=== PATIENT | female | born 1955 | race Caucasian/White ===

== ENCOUNTER 2016-06-10 06:19 | Inpatient (IN) | payer BC ==
[2016-06-09 13:26] VITALS: BMI 29.0
[2016-06-10] MEDS ORDERED: TRANEXAMIC ACID 1000 MG/10 ML VIAL IVPUSH ONE (06:36)
[2016-06-10] MEDS ORDERED: ROPIVICAINE 0.2%/MORPH PF/KETOROLAC - 51ML DISP.SYRINGE IA ONE (06:36)
[2016-06-10] MEDS ORDERED: CEFAZOLIN 2 GM in DEXTROSE 5%-WATER - 50 ML IVPB ONE (06:36)
[2016-06-10] MEDS ORDERED: CELECOXIB 200 MG CAPSULE PO ONE (06:36)
[2016-06-10] MEDS ORDERED: GABAPENTIN 300 MG CAPSULE (FP) PO ONE (06:36)
[2016-06-10] MEDS ORDERED: oxyCODONE HCL 10 MG SUSTAINED ACTING TABLET PO ONE (06:36)
[2016-06-10] MEDS ORDERED: MIDAZOLAM HCL 2 MG/2 ML SINGLE DOSE VIAL ONE (06:46)
[2016-06-10] MEDS ORDERED: DEXAMETHASONE SOD PHOSPHATE/PF 10 MG/ML SDV ONE (06:46)
[2016-06-10] MEDS ORDERED: ROPIVACAINE HCL 0.5% 30ML VIAL ONE (06:47)
[2016-06-10] MEDS ORDERED: SODIUM CHLORIDE 0.9% P/F 10 ML VIAL IJ ONE (06:47)
[2016-06-10] MEDS ORDERED: VANCOMYCIN 1,000 MG VIAL (RESTRICTED TO ID ONLY) ONE (07:23)
[2016-06-10] MEDS ORDERED: ceFAZolin SODIUM 1 GM VIAL ONE ×2 (07:23→08:54)
[2016-06-10] MEDS ORDERED: PROPOFOL 20 ML ONE ×3 (07:37)
[2016-06-10] MEDS ORDERED: BUPIVACAINE HCL/PF 0.5% (5MG/ML) 10 ML VIAL ONE (07:42)
--- NOTE | 2016-06-10 07:50 | HP ---
Admitting History and Physical - Admission Chief Complaint: Left knee OA x years History of Present Illness: 60 year old female presents in regard to her left knee. Longstanding history of left knee osteoarthritis. Patient complains of pain, limited ROM and difficulty ambulating. Patient has failed conservative treatment including PO medication, activity modification and injections. At this point patient would like to proceed with a left total knee arthroplasty. History Source: Patient - Past Medical History Cardiovascular: Yes: HTN Gastrointestinal: Yes: GERD ...: No Psych: Yes: Anxiety, Depression Additional Past Medical History: See written H&P in chart - Smoking History Smoking history: Current every day smoker Have you smoked in the past 12 months: Yes Aproximately how many cigarettes per day: 10 - Alcohol/Substance Use Hx Alcohol Use: No Home Medications - Allergies Allergies/Adverse Reactions: Allergies Allergy/AdvReac Type Severity Reaction Status Date / Time venom-honey bee Allergy Severe SWELLING/ITCHING/RESPIRATORY Verified 06/10/16 06 :45 [bee venom (honey bee)] DISTRESS adhesive tape Allergy Intermediate BLISTERS Verified 06/10/16 06:45 morphine Allergy Intermediate "VOMITTING" Verified 06/10/16 06:45 - Home Medications Home Medications: Ambulatory Orders Paroxetine HCl [Paxil -] 50 mg PO DAILY 11/03/11 Quinapril HCl [Accupril -] 40 mg PO HS 11/03/11 Alprazolam [Xanax] 1 mg PO TID 06/04/15 Amitriptyline HCl [Elavil -] 50 mg PO HS 06/05/15 Omeprazole [Prilosec] 40 mg PO DAILY 06/08/15 Cholecalciferol (Vitamin D3) [Vitamin D3] 2,000 iu PO DAILY 05/13/16 Oxycodone HCl 20 mg PO QID PRN 05/13/16 Review of Systems - Review of Systems Musculoskeletal: reports: Crepitus (Left knee), Decreased ROM, Joint Pain, Joint Swelling Physical Examination Vital Signs: Vital Signs Temperature 97.6 F 06/10/16 06:40 Pulse Rate 689 H 06/10/16 06:40 Respiratory Rate 16 06/10/16 06:40 Blood Pressure 95/69 06/10/16 06:40 O2 Sat by Pulse Oximetry (%) 98 06/10/16 07:02 Constitutional: Yes: Well Nourished, No Distress Eyes: Yes: Conjunctiva Clear HENT: Yes: Atraumatic, Normocephalic Cardiovascular: Yes: Regular Rate and Rhythm Respiratory: Yes: Regular Gastrointestinal: Yes: Soft ...Rectal Exam: Yes: Deferred Musculoskeletal: Yes: Joint Stiffness (Left knee), Joint Swelling Assessment/Plan 60 year old female presents in regard to her left knee. Longstanding history of left knee osteoarthritis. Patient has failed all conservative treatment. Proceed with a left total knee arthroplasty.
[2016-06-10] MEDS ORDERED: TRANEXAMIC ACID 1000 MG/10 ML VIAL ONE ×2 (08:54)
[2016-06-10] MEDS ORDERED: DEXAMETHASONE SOD PHOSPHATE 4 MG/1 ML VIAL ONE (11:01)
[2016-06-10] MEDS ORDERED: ONDANSETRON 4 MG/2 ML VIAL ONE (11:01)
[2016-06-10] MEDS ORDERED: ONDANSETRON 4 MG/2 ML VIAL IVPB PRN (12:00)
[2016-06-10] MEDS ORDERED: MAGNESIUM HYDROX 2400MG/30ML ORAL SUSPENSION 30 ML CUP PO PRN (12:00)
[2016-06-10] MEDS ORDERED: LACTATED RINGERS SOLUTION 1,000 ML IV SCH (12:00)
[2016-06-10] MEDS ORDERED: MAG HYDROX/AL HYDROX/SIMETH 30 ML UNIT-DOSE CUP PO PRN (12:00)
--- NOTE | 2016-06-10 12:00 | OP ---
Operative Note - Note: Operative Date: 06/10/16 Pre-Operative Diagnosis: Left knee OA Operation: left TKA Post-Operative Diagnosis: Same as Pre-op Surgeon: Arnie Alcala Rehabilitation Teacher: Evelia Rick Anesthesia: Spinal Estimated Blood Loss (mls): 100
[2016-06-10] MEDS ORDERED: PANTOPRAZOLE 40 MG TABLET (FP) PO ONE (12:03)
[2016-06-10] MEDS ORDERED: ACETAMINOPHEN 325 MG TABLET (FP) ONE (12:21)
[2016-06-10] MEDS: KETOROLAC TROMETHAMINE 30 MG/1 ML VIAL IVPUSH SCH ×2 (12:40→17:58)
[2016-06-10] MEDS: traMADol HCL 50 MG TABLET PO SCH ×2 (12:40→17:59)
[2016-06-10] MEDS ORDERED: ROPIVACAINE 0.2% 400ML 400 ML ML NR ONE (14:00)
[2016-06-10] MEDS ORDERED: oxyCODONE HCL 5 MG TABLET PO PRN (14:00)
[2016-06-10] MEDS: ACETAMINOPHEN 325 MG TABLET (FP) PO SCH ×2 (15:54→18:05)
[2016-06-10] MEDS: CEFAZOLIN 2 GM/D5W 50 ML IVPB SCH (17:57)
[2016-06-10] MEDS: oxyCODONE HCL 5 MG TABLET PO PRN ×2 (18:04→21:39)
[2016-06-10] MEDS: oxyCODONE HCL 10 MG SUSTAINED ACTING TABLET PO SCH (21:39)
[2016-06-10] MEDS: ASCORBIC ACID 500 MG TABLET (FP) PO SCH (21:40)
[2016-06-10] MEDS: CELECOXIB 200 MG CAPSULE PO SCH (21:40)
[2016-06-10] MEDS: GABAPENTIN 300 MG CAPSULE (FP) PO SCH (21:40)
[2016-06-10] MEDS: SENNOSIDES/DOCUSATE COMBO (SENNA PLUS) TABLET (UD) PO SCH (21:40)
[2016-06-10] MEDS ORDERED: GABAPENTIN 300 MG CAPSULE (FP) PO SCH (22:00)
[2016-06-11] MEDS: ACETAMINOPHEN 325 MG TABLET (FP) PO SCH ×5 (00:24→19:56)
[2016-06-11] MEDS: KETOROLAC TROMETHAMINE 30 MG/1 ML VIAL IVPUSH SCH ×2 (00:24→06:08)
[2016-06-11] MEDS: traMADol HCL 50 MG TABLET PO SCH ×4 (00:24→18:52)
[2016-06-11] MEDS: CEFAZOLIN 2 GM/D5W 50 ML IVPB SCH (01:25)
[2016-06-11] MEDS: oxyCODONE HCL 5 MG TABLET PO PRN ×4 (06:09→21:08)
[2016-06-11] MEDS: ASPIRIN 325 MG TABLET PO SCH (08:06)
[2016-06-11 08:44] LABS: MCH 30.5 pg (25.7-33.7); MCHC 33.3 g/dl (32.0-36.0); MEAN CELL VOLUME 91.5 fl (80-96); MEAN PLT VOLUME 8.2 fl (7.5-11.1); PLATELET COUNT 208 K/MM3 (134-434); RDW 13.6 % (11.6-15.6); WHITE BLOOD COUNT 7.4 K/mm3 (4.0-10.8)
[2016-06-11 08:47] LABS: ANION GAP 9 (8-16); CALCIUM 8.9 mg/dl (8.4-10.2); CO2 27 mmol/L (22-28); CREATININE 0.8 mg/dl (0.6-1.3); GLUCOSE,RANDOM 101 mg/dl (74-106)
[2016-06-11] MEDS: GABAPENTIN 300 MG CAPSULE (FP) PO SCH ×2 (09:21→21:11)
[2016-06-11] MEDS: ASCORBIC ACID 500 MG TABLET (FP) PO SCH ×2 (09:21→21:09)
[2016-06-11] MEDS: SENNOSIDES/DOCUSATE COMBO (SENNA PLUS) TABLET (UD) PO SCH ×2 (09:21→21:11)
[2016-06-11] MEDS: MULTIVITAMINS (DAILY MVI) TABLET (FP) PO SCH (09:21)
[2016-06-11] MEDS: PANTOPRAZOLE 40 MG TABLET (FP) PO SCH (09:21)
[2016-06-11] MEDS: oxyCODONE HCL 10 MG SUSTAINED ACTING TABLET PO SCH ×2 (09:21→21:10)
[2016-06-11] MEDS: CELECOXIB 200 MG CAPSULE PO SCH ×2 (09:21→21:11)
--- NOTE | 2016-06-11 14:56 | PN ---
Progress Note (short form) - Note Progress Note: Patient doing well. POD#1 s/p L total knee replacements. Adductor canal catheter removed after 20 mL bolus of 0.5% bupivicaine administered. Catheter tip intact. Patient able to participate in physical therapy. Continue current care.
[2016-06-11] MEDS ORDERED: KETOROLAC TROMETHAMINE 30 MG/1 ML VIAL IM STA (19:47)
--- NOTE | 2016-06-11 22:16 | PN ---
Progress Note (short form) - Note Progress Note: Pt seen and examined. Comfortable now. No current complaints. AVSS Selected Entries 06/11/16 06/11/16 13:58 20:13 Temperature 98.7 F Pulse Rate 72 Respiratory 18 Rate Blood Pressure 114/63 O2 Sat by Pulse 96 Oximetry (%) Laboratory Tests 06/11/16 06/11/16 08:00 08:00 WBC 7.4 Hgb 10.6 L Hct 32.0 L Plt Count 208 Sodium 141 Potassium 4.4 Chloride 105 Carbon Dioxide 27 Anion Gap 9 BUN 19 H Creatinine 0.8 Random Glucose 101 Calcium 8.9 Gen: NAD LLE: c/d/i, NVID A/P 60yo female POD#1 s/p L TKA 1. PT/OOB - WBAT LLE 2. D/C home tomorrow afternoon
[2016-06-11] MEDS ORDERED: oxyCODONE HCL 5 MG TABLET PO PRN (22:20)
[2016-06-12] MEDS: traMADol HCL 50 MG TABLET PO SCH ×2 (00:45→05:50)
[2016-06-12] MEDS: oxyCODONE HCL 5 MG TABLET PO PRN ×3 (00:45→07:23)
[2016-06-12] MEDS: ACETAMINOPHEN 325 MG TABLET (FP) PO SCH ×2 (05:18→07:04)
[2016-06-12 05:49] VITALS: BP 111/56; PULSE 82; TEMP 98
[2016-06-12 07:47] LABS: MCH 29.9 pg (25.7-33.7); MEAN CELL VOLUME 90.6 fl (80-96); MEAN PLT VOLUME 7.9 fl (7.5-11.1); PLATELET COUNT 206 K/MM3 (134-434); RDW 13.7 % (11.6-15.6); WHITE BLOOD COUNT 5.4 K/mm3 (4.0-10.8)
[2016-06-12] MEDS: ASPIRIN 325 MG TABLET PO SCH (08:00)
[2016-06-12] MEDS: GABAPENTIN 300 MG CAPSULE (FP) PO SCH (09:11)
[2016-06-12] MEDS: SENNOSIDES/DOCUSATE COMBO (SENNA PLUS) TABLET (UD) PO SCH (09:11)
[2016-06-12] MEDS: CELECOXIB 200 MG CAPSULE PO SCH (09:11)
[2016-06-12] MEDS: ASCORBIC ACID 500 MG TABLET (FP) PO SCH (09:12)
[2016-06-12] MEDS: MULTIVITAMINS (DAILY MVI) TABLET (FP) PO SCH (09:12)
[2016-06-12] MEDS: PANTOPRAZOLE 40 MG TABLET (FP) PO SCH (09:12)
--- NOTE | 2016-06-15 16:17 | PATH ---
Surgical Pathology Report Patient Name: DAVINA MCKEON Med. Rec. #: [id number] /Age/Gender: 1955 (Age: 60) / F Account: [id number] Location: [facility] MED-[facility] Taken: 06/10/2016 Received: 06/10/2016 Reported: 06/15/2016 Physicians: Arnie Alcala M.D. Specimen(s) Received BONE LEFT KNEE Clinical History Osteoarthritis left knee Final Diagnosis BONE, LEFT KNEE, TOTAL KNEE REPLACEMENT: DEGENERATIVE JOINT DISEASE. Electronically Signed Alicia Soto M.D. Gross Description Received in formalin labeled "bone left knee," is a 14.0 x 9.5 x 2.0 cm aggregate of multiple irregular portions of bone and soft tissue. The tibial plateau measures 7.5 x 5.4 x 1.8 cm. There are multiple areas of eburnation present, measuring up to 1.4 cm in greatest dimension. The remaining articular surfaces are arevalo-yellow and focally granular. The underlying trabecular bone is yellow and hard. Upper Cutter Out sections are submitted in one cassette, following decalcification. 06/11/201606/11/2016
--- NOTE | 2016-07-08 17:22 | SPEC ---
DATE OF OPERATION: 06/10/2016 PREOPERATIVE DIAGNOSIS: Left knee osteoarthritis. POSTOPERATIVE DIAGNOSIS: Left knee osteoarthritis. PROCEDURE: Left total knee replacement. ATTENDING: Maryann Pierson MD HOSPITAL CLEANING SPECIALIST: JESSICA Pike ANESTHESIA: Spinal plus sedation. ESTIMATED BLOOD LOSS: 100 mL. COMPLICATIONS: None. SPECIMENS: Resected bone was sent for pathology analysis. DISPOSITION: The patient was transferred to the PACU in stable condition. IMPLANTS USED: Yoan Triathlon size 4 femoral component, Triathlon size 4 tibial component, 29-mm patellar component, 13-mm posterior stabilized polyethylene component. INDICATIONS: This is a 60-year-old female who is a long-time patient of mine who presented to the office complaining of severe left knee pain. X-rays and physical examination revealed severe left knee osteoarthritis. She was initially treated nonoperatively with injections, medications, and physical therapy but continued to have severe pain and ambulatory dysfunction. She was subsequently indicated for a left total knee replacement. The risks, benefits and alternatives to the procedure were explained to the patient in great detail and she elected to proceed with the surgery. On the day of surgery, the patient was taken to the operating room and placed on the OR table. Spinal anesthesia was administered by the anesthesiologist. The patient was then positioned supine on the table and all bony prominences were padded. A nonsterile tourniquet was placed on the proximal thigh. The knee was then prepped and draped in the usual sterile fashion and intravenous antibiotics were given for infection prophylaxis. A surgical time-out was then performed with the team, and the patients identity, procedure, side, availability of implants, and the administration of antibiotics was confirmed. The leg was then elevated and exsanguinated, and the tourniquet was inflated. With the knee flexed, a midline incision was made and carried down through the subcutaneous fat to the underlying retinaculum. A medial parapatellar arthrotomy was performed. This was followed by a subperiosteal dissection of the tissue off the proximal, medial tibia. A portion of fat pad was removed from under the patellar tendon, and a small portion of fat was excised off the distal supracondylar femur. The knee was then flexed further and the anterior horn of the lateral meniscus was released from the midline. Next, the anterior and posterior cruciate ligaments were transected. Osteophytes were removed from both the femur and tibia. Grade 4 changes were noted diffusely throughout the knee. Hohmann retractors were then placed around the distal femur. The starting drill was used to enter the intramedullary canal. The starting point had been chosen by checking the radiographs and anatomy. Proper alignment and intramedullary placement was then confirmed by placing the long narrow kirstie into the femur. Next, the distal femoral cutting guide was adjusted to 6 degrees of valgus and pinned to the femur. The bone resection was assessed using an martine-wing. An approximately 10mm distal cut was made and the cut pieces measured. Once this was complete, the sizing guide was used to determine which size femoral component should be used. Next, the appropriately sized 4-in-1 cutting block was then placed at the correct amount of external rotation and the martine wing was used to assure that there would be no notching of the anterior cortex of the femur. Once this was done, Hohmann retractors were used to protect the medial and lateral collateral ligaments, and all appropriate bone cuts were made. Attention was then turned to the tibia. Hohmann retractors were used to translate the tibia anteriorly and protect the collateral ligaments. The medial and lateral menisci were removed. The extramedullary tibial alignment guide was then placed and adjusted for rotation, varus/valgus, and slope. The height of the cutting block was adjusted to the level of the desired bone resection and then pinned in place. The proximal tibia was then cut with a saw and the bone was removed and measured. Once this was completed, trial components were placed and the knee was taken through a full range of motion. Soft tissue balance was assessed in both flexion and extension and found to be appropriate. The knee was stable throughout the full range of motion. The knee was then put into extension and the patella everted. The synovium around the patella was circumscribed with electrocautery. A caliper was used to measure the patellar thickness and a saw was then used to resect the patella at the chondro-osseous junction. The cut surface was then sized and drilled for the appropriate patellar button, with care taken to medialize it. A trial patella was then placed and the knee was again taken through a full range of motion. The knee was found to have both good balance and good patellar tracking. All of the components were removed except the tibial base plate. The appropriate instrumentation was used to drill and punch the proximal tibia for the keel of the final component. All bony surfaces were then cleaned with pulsatile lavage and dried. Bone cement was then prepared on the back table, and final components were cemented in place in the usual fashion. Extruded cement was removed. The polyethylene trial was placed, the knee was put into extension, and axial pressure was applied for compression while the cement hardened. The patellar button was similarly cemented into place. Once the cement had hardened, the knee was taken through a full range of motion to assess stability, balance, and patellar tracking. This was found to be optimal and the trial polyethylene was exchanged for the appropriately sized real implant. The wound was then thoroughly irrigated with normal saline. No. 1 Polysorb and 0 VLoc 180 barbed sutures were used to close the arthrotomy. No. 1 Polysorb and 2-0 Polysorb sutures were used in the subcutaneous tissues. The skin was closed using both 3-0 VLoc 90 suture in a running subcuticular fashion and SwiftSet skin adhesive. Once this was completed a sterile Aquacel dressing and compressive Milton-wrap was applied. The tourniquet was then deflated and the patient was awakened and taken to the PACU in stable condition. MARYANN PIERSON M.D. [id number]
== END 2016-06-12 12:45 | disposition home health service (06) | DRG 470 ==
LOC: FM/S 06:19
PROVIDERS: ADMIT Student in an Organized Health Care Education/Training Program; ATTEND Student in an Organized Health Care Education/Training Program
PROC: 0SRD0JZ Replacement of Left Knee Joint with Synthetic Substitute, Open Approach (ICD-10-PCS; principal; 2016-06-10 09:18)
DX: M17.12 Unilateral primary osteoarthritis, left knee (principal); F17.210 Nicotine dependence, cigarettes, uncomplicated; I10 Essential (primary) hypertension; K21.9 Gastro-esophageal reflux disease without esophagitis
CPT/HCPCS: 36415; 73560-TC-LT; 80048; 85027; 88304-TC; 88311-TC; 94010; 94760; 97116-GP; 97162-PG

== ENCOUNTER 2017-01-28 12:08 | Emergency (ER) | payer BC, MEDICARE, OTHER ==
[2017-01-28 12:17] VITALS: BP 112/86; PULSE 82; TEMP 97.9; BMI 29.8
[2017-01-28] MEDS ORDERED: KETOROLAC TROMETHAMINE 60 MG/2 ML VIAL IM ONE (13:29)
[2017-01-28] MEDS ORDERED: KETOROLAC TROMETHAMINE 60 MG/2 ML VIAL ONE (13:32)
--- NOTE | 2017-01-28 13:34 | PDOC ---
History of Present Illness - General Chief Complaint: Chronic pain Stated Complaint: BACK INJURY Time Seen by Provider: 01/28/17 12:46 History Source: Patient Exam Limitations: No Limitations - History of Present Illness Initial Comments: 01/28/17 19:19 Chief complaint: Worsening lower back pain mostly left-sided down left leg History of present illness: Patient is a 61-year-old female with a history of depression, GERD, hypertension, left knee replacement and right shoulder total replacement here today complaining of worsening lower back pain on left side radiating down her left leg. Patient reports that she noticed a deformity of her left lower medial sacral area today that she did not notice yesterday with worsening left-sided lower back pain radiating down her leg. Patient denies any saddle anesthesia or any incontinency or any weakness or numbness of her legs. Patient is on pain management takes Percocet as needed for pain. Patient reports that she is extremely worried about feeling an indurated area to the left sacral area this morning and is worried that her anxiety will get worse thinking about what is the cause of this. 01/28/17 19:25 Timing/Duration: getting worse Severity: severe (lower back pain with radiation down left leg ) Associated Symptoms: reports: other (lower back pain with radiation down left leg) Past History - Past Medical History Allergies/Adverse Reactions: Allergies Allergy/AdvReac Type Severity Reaction Status Date / Time venom-honey bee Allergy Severe SWELLING/ITCHING/RESPIRATORY Verified 01/28/17 12 :17 [bee venom (honey bee)] DISTRESS adhesive tape Allergy Intermediate BLISTERS Verified 01/28/17 12:17 morphine Allergy Intermediate "VOMITTING" Verified 01/28/17 12:17 Home Medications: Ambulatory Orders Paroxetine HCl [Paxil -] 50 mg PO DAILY 11/03/11 Quinapril HCl [Accupril -] 40 mg PO HS 11/03/11 Alprazolam [Xanax] 1 mg PO TID 06/04/15 Amitriptyline HCl [Elavil -] 50 mg PO HS 06/05/15 Cholecalciferol (Vitamin D3) [Vitamin D3] 2,000 iu PO DAILY 05/13/16 Oxycodone HCl 20 mg PO QID PRN 05/13/16 Ascorbic Acid [Vitamin C -] 500 mg PO BID tablet 06/12/16 Multivitamins [Multivit ([facility] Formulary)] 1 tab PO DAILY tab 06/12/16 Anemia: No Asthma: No Cancer: No Cardiac Disorders: No CVA: No COPD: No CHF: No DVT: No Dementia: No Diabetes: No GI Disorders: Yes (GERD) Disorders: No HTN: Yes Hypercholesterolemia: No Liver Disease: No Psychiatric Problems: Yes (DEPRESSION) Seizures: No Thyroid Disease: No - Surgical History Abdominal Surgery: Yes (UMBILICAL HERNIA REPAIR 2012,3 HERNIA REPAIRS) Appendectomy: No Cardiac Surgery: No Cholecystectomy: No Gastric Stapling: Yes (BYPASS,REVISION) Lung Surgery: No Neurologic Surgery: No Orthopedic Surgery: Yes (RIGHT SHOULDER ARTHROSCOPY/LEFT ULNAR REPAIR) - Suicide/Smoking/Psychosocial Hx Smoking Status: Yes Smoking History: Current every day smoker Years of Tobacco Use: 40 Have you smoked in the past 12 months: Yes Number of Cigarettes Smoked Daily: 20 Information on smoking cessation initiated: No 'Breaking Loose' booklet given: 06/05/15 Hx Alcohol Use: No Drug/Substance Use Hx: No Substance Use Type: None Hx Substance Use Treatment: No Review of Systems - Review of Systems Able to Perform ROS?: Yes Constitutional: No: Symptoms Reported HEENTM: No: Symptoms Reported Respiratory: No: Symptoms reported Cardiac (ROS): No: Symptoms Reported ABD/GI: No: Symptoms Reported : No: Symptoms Reported Musculoskeletal: Yes: Back Pain (left sided lower back pain with radiation down left leg,), Other (indurated area left medial sacrum) Integumentary: No: Symptoms Reported Neurological: No: Symptoms reported *Physical Exam - Vital Signs Last Vital Signs Temp Pulse Resp BP Pulse Ox 97.9 F 82 18 112/86 100 01/28/17 12:14 01/28/17 12:14 01/28/17 12:14 01/28/17 12:14 01/28/17 12:14 - Physical Exam General Appearance: Yes: Appropriately Dressed Respiratory/Chest: positive: Lungs Clear, Normal Breath Sounds. negative: Chest Tender, Respiratory Distress Cardiovascular: positive: Regular Rhythm, Regular Rate, S1, S2 Musculoskeletal: positive: Normal Inspection, Decreased Range of Motion (at waist with anterior flexion ), Other (induration left medial sacrum pea size ). negative: CVA Tenderness, CVA Tenderness (R), CVA Tenderness (L), Vertebral Tenderness Extremity: positive: Normal Capillary Refill, Normal Inspection, Normal Range of Motion Integumentary: positive: Normal Color Neurologic: positive: Alert, Normal Response, Motor Strength 5/5 (4/4 legs ), Respond to painful stimul, Responsive, Other (negative SLR b/l ). negative: Numbness, Sensory Deficit (legs ) Medical Decision Making - Medical Decision Making 01/28/17 19:21 Patient is a 61-year-old female with a history of depression, hypertension, left knee replacement and right shoulder total replacement here today complaining of worsening lower back pain on left side radiating down her left leg. Patient reports that she noticed a deformity of her left lower medial sacral area today that she did not notice yesterday with worsening left-sided lower back pain radiating down her leg. Patient denies any saddle anesthesia or any incontinency or any weakness or numbness of her legs. Patient is on pain management takes Percocet as needed for pain. Patient reports that she is extremely worried about feeling an indurated area to the left sacral area this morning and is worried that her anxiety will get worse thinking about what is the cause of this. Left sided lower back pain with radiculopathy down left leg worse since this morning with deformity of area felt by patient will rule out bony abnormality Plan: Toradol [address] of pelvis degenerative changes especially at L4-L5,L5-S1 Will Have patient follow up with her orthopedist as soon as possible for further evaluation 01/28/17 19:24 *DC/Admit/Observation/Transfer Diagnosis at time of Disposition: Lumbar back pain with radiculopathy affecting left lower extremity - Discharge Dispostion Disposition: HOME Condition at time of disposition: Stable - Referrals Referrals: Silviano Thompson [Primary Care Provider] - - Patient Instructions Additional Instructions: Follow-up with your orthopedist for further evaluation Take pain medications as previously ordered Avoid any strenuous activities or exercise Return to emergency room if any numbness of legs or private area or any loss of control of bladder or bowel movement or any extreme weakness of legs Patient voiced understanding of discharge instructions and all questions were answered Thank you for choosing [facility] emergency room premedical needs to today - Post Discharge Activity
== END 2017-01-28 15:18 | disposition home or self-care (01) ==
LOC: JERFT 12:08
PROC: 3E0233Z Introduction of Anti-inflammatory into Muscle, Percutaneous Approach (ICD-10-PCS; principal; 2017-01-28)
DX: M54.16 Radiculopathy, lumbar region (principal); I10 Essential (primary) hypertension; F32.9 Major depressive disorder, single episode, unspecified
CPT/HCPCS: 72192-TC; 96372; 99281-25

== ENCOUNTER 2019-01-22 07:06 | Day surgery (SDC) | payer OTHER ==
[2019-01-16 11:33] VITALS: BMI 35.5
[2019-01-22] MEDS ORDERED: BUPIVACAINE HCL/PF 0.25% (2.5MG/ML) 10 ML VIAL ONE (07:19)
[2019-01-22] MEDS ORDERED: BETAMET ACET/BETAMET NA PH 30 MG/5 ML VIAL ONE (07:19)
[2019-01-22] MEDS ORDERED: LIDOCAINE HCL 1%, 10 MG/ML (20ML VIAL) ONE (07:19)
[2019-01-22] MEDS ORDERED: BUPIVACAINE HCL/PF 0.5% (5 MG/ML) 30 ML VIAL IJ ONE ×2 (07:19→12:15)
[2019-01-22] MEDS ORDERED: PROPOFOL 20 ML ONE (09:05)
[2019-01-22] MEDS ORDERED: MIDAZOLAM HCL 2 MG/2 ML SINGLE DOSE VIAL ONE ×3 (12:06→12:26)
[2019-01-22] MEDS ORDERED: LIDOCAINE HCL 1%, 10 MG/ML (20ML VIAL) NR ONE (12:14)
[2019-01-22] MEDS ORDERED: IOHEXOL 180 MG/1 ML ML IJ ONE (12:15)
[2019-01-22] MEDS ORDERED: BETAMET ACET/BETAMET NA PH 30 MG/5 ML VIAL IM ONE (12:16)
[2019-01-22 14:21] VITALS: TEMP 97.8
[2019-01-22 14:27] VITALS: PULSE 98
[2019-01-22 17:42] VITALS: BP 125/80
--- NOTE | 2019-02-06 23:19 | PROC ---
Procedure Note Procedure: Date of service: 01/22/2019 Preoperative Diagnosis: Low back pain and lumbar Facet Arthropathy on right / Left Postoperative Diagnosis: Same Procedure Performed: Lumbar Facet diagnostic blocks on Right / Left L3-4/ L4-5 / L5-S1 with dye under Fluoroscopy Anesthesia: Local / MAC Anesthesiologist: Procedure: I discussed with the patient in detail about the risks, benefits and alternatives to treatment not only limited to infection, headache, numbness, weakness and injury to nerves, spinal cord, blood vessels and muscles. The patient understood, agreed and signed the written consent. The patient was placed in the prone position with the head, abdomen and legs supported with the pillows. The patients lower back was prepped and draped in a sterile fashion. Under C-arm and Scottie dog view eye was identified the L2-3, L3-4 and L4-5 levels on Left/Right side. At the level of L3-4 (L3) on Rigth , 2 ml of 1% Lidocaine was infiltrated into the skin and subcutaneous tissue. A 5 inch #22 guage spinal needle was used to approach the eye of the Scottie dog in the oblique view until the tip of the needle contacted the bone with the use of intermittent fluoroscopy. Needle placement was confirmed both in the AP and oblique view. Aspiration was done which was negative for blood. 0.20 ml of dye omnipaque was injected to see the spread of the dye. A solution of O.5% marciane 5 ml mixed with one ml of Celestone was prepared. A solution of 1 ml of this solution was injected at this level. Whilethe needle was withdrawn 1 ml of 1% Lidocaine was infiltrated. A similar procedure was repeated at left/ Right L4-5 (L4) and L5-S1 (L5) and left L3-4 level. The patient tolerated the procedure well. Bleeding was checked. There were no immediate complications. The patient was observed and asked about pain level. The patient mentioned that there was improvement was more than 90%. The patient was told to apply ice at the injection sites. If there is any problem, call my office or report to the ER . The patient was discharged as per [facility] criteria. Elijah Fonseca M.D.
== END 2019-01-22 13:50 | disposition home or self-care (01) ==
LOC: JASU-SURG 07:06
PROVIDERS: ATTEND Physical Medicine & Rehabilitation
PROC: 3E0T3BZ Introduction of Anesthetic Agent into Peripheral Nerves and Plexi, Percutaneous Approach (ICD-10-PCS; 2019-01-22)
PROC: BR16YZZ Fluoroscopy of Lumbar Facet Joint(s) using Other Contrast (ICD-10-PCS; 2019-01-22)
PROC: 3E0T33Z Introduction of Anti-inflammatory into Peripheral Nerves and Plexi, Percutaneous Approach (ICD-10-PCS; principal; 2019-01-22 09:30)
DX: M46.96 Unspecified inflammatory spondylopathy, lumbar region (principal); M54.5 Low back pain
CPT/HCPCS: 76000-TC-FY

== ENCOUNTER 2019-02-23 07:18 | Day surgery (SDC) | payer OTHER ==
[2019-02-22 09:07] VITALS: BMI 35.5
[2019-02-23] MEDS ORDERED: PROPOFOL 20 ML ONE ×2 (08:34→10:13)
[2019-02-23] MEDS ORDERED: MIDAZOLAM HCL 2 MG/2 ML SINGLE DOSE VIAL ONE (09:01)
[2019-02-23] MEDS ORDERED: IOHEXOL 180 MG/1 ML ML IJ ONE ×2 (10:25)
[2019-02-23] MEDS ORDERED: LIDOCAINE HCL 1%, 10 MG/ML (20ML VIAL) NR ONE (10:25)
[2019-02-23] MEDS ORDERED: BUPIVACAINE HCL/PF 0.5% (5MG/ML) 10 ML VIAL IJ ONE (10:25)
[2019-02-23 12:57] VITALS: PULSE 68; TEMP 97.8
[2019-02-23 13:13] VITALS: BP 140/70
--- NOTE | 2019-02-26 23:48 | PROC ---
Procedure Note Procedure: Date of service: 02/23/2019 Preoperative Diagnosis: Low back pain and lumbar Facet arthropathy on right / Left Postoperative Diagnosis: Same Procedure Performed: Lumbar Epidural Steroid Injection (LESI) on Right / Left L3 -4 /L4-5/ L5-S1 with dye under Fluoroscopy Anesthesia: Local / MAC Anesthesiologist: Dr. Bhandari Procedure: I discussed with the patient in detail about the risks, benefits and alternatives to treatment not only limited to infection, headache, numbness, weakness and injury to nerves, spinal cord, blood vessels and muscles. The patient understood, agreed and signed the written consent. The patient was placed in the prone position with the head, abdomen and legs supported with the pillows. The patients lower back was prepped and draped in a sterile fashion. Under C-arm and Scottie dog view eye was identified the L2-3, L3-4 and L4-5 levels on Left/ Right side. At the level of L3-4 (L3),on left 2 ml of 1% Lidocaine was infiltrated into the skin and subcutaneous tissue. A 5 inch #22 guage spinal needle was used to approach the eye of the Scottie dog in the oblique view until the tip of the needle contacted the bone with the use of intermittent fluoroscopy. Needle placement was confirmed both in the AP and oblique view. Aspiration was done which was negative for blood. 0.20 ml of dye omnipaque was injected to see the spread of the dye. A solution of 0.5 ml of preservative free 0.5% Marcaine was injected at this level. While the needle was withdrawn 1 ml of 1% Lidocaine was infiltrated.Similar procedure was repeated at left/ Right L4-5 (L4) and L5-S1 (L5) and Rt L3-4 level. The patient tolerated the procedure well. Bleeding was checked. There were no immediate complications. The patient was observed and asked about pain level. The patient mentioned that there was improvement was more than 90%. The patient was told to apply ice at the injection sites. The patient was discharged as per [facility] criteia. If there is any problem, call my office or report to the ER Elijah Fonseca M.D.
== END 2019-02-23 12:15 | disposition home or self-care (01) ==
LOC: JASU-SURG 07:18
PROVIDERS: ATTEND Physical Medicine & Rehabilitation
PROC: 3E0T33Z Introduction of Anti-inflammatory into Peripheral Nerves and Plexi, Percutaneous Approach (ICD-10-PCS; 2019-02-23)
PROC: 3E0T3BZ Introduction of Anesthetic Agent into Peripheral Nerves and Plexi, Percutaneous Approach (ICD-10-PCS; principal; 2019-02-23 09:00)
DX: M46.97 Unspecified inflammatory spondylopathy, lumbosacral region (principal); M54.5 Low back pain
CPT/HCPCS: 76000-TC-FY

== ENCOUNTER 2020-06-03 07:21 | Inpatient (IN) | payer OTHER ==
[2020-06-03] MEDS ORDERED: ceFAZolin SODIUM 1 GM VIAL ONE ×2 (07:25→10:16)
[2020-06-03] MEDS ORDERED: VANCOMYCIN 1,000 MG VIAL (RESTRICTED TO ID ONLY) ONE (07:25)
[2020-06-03] MEDS ORDERED: CELECOXIB 200 MG CAPSULE PO ONE (08:06)
[2020-06-03] MEDS ORDERED: TRANEXAMIC ACID 1000 MG/10 ML VIAL IVPUSH ONE (08:06)
[2020-06-03] MEDS ORDERED: CEFAZOLIN 2 GM in DEXTROSE 5%-WATER - 50 ML IVPB ONE (08:06)
[2020-06-03 08:29] VITALS: BMI 32.5
[2020-06-03] MEDS ORDERED: SODIUM CHLORIDE 0.9% P/F 10 ML VIAL IJ ONE (08:33)
[2020-06-03] MEDS ORDERED: BUPIVACAINE LIPOSOME/PF (EXPAREL) 266 MG/20 ML VIAL ONE (08:33)
[2020-06-03] MEDS ORDERED: MIDAZOLAM HCL 2 MG/2 ML SINGLE DOSE VIAL ONE (08:33)
[2020-06-03] MEDS ORDERED: SUCCINYLCHOLINE CHLORIDE 200 MG/10 ML SYRINGE ONE (10:16)
[2020-06-03] MEDS ORDERED: ONDANSETRON 4 MG/2 ML VIAL ONE ×2 (10:16→11:41)
[2020-06-03] MEDS ORDERED: DEXAMETHASONE SOD PHOSPHATE 4 MG/1 ML VIAL ONE ×2 (10:16→11:41)
[2020-06-03] MEDS ORDERED: TRANEXAMIC ACID 1000 MG/10 ML VIAL ONE ×2 (10:16→11:41)
[2020-06-03] MEDS ORDERED: PROPOFOL 20 ML ONE (10:16)
[2020-06-03] MEDS ORDERED: SEVOFLURANE 250 ML BTL ONE (11:28)
[2020-06-03] MEDS ORDERED: NITROGLYCERIN SUBLINGUAL 1/150 0.4 MG TAB SL PRN (12:17)
[2020-06-03] MEDS ORDERED: ONDANSETRON 4 MG/2 ML VIAL IVPUSH PRN (12:20)
[2020-06-03] MEDS ORDERED: MAG HYDROX/AL HYDROX/SIMETH 30 ML UNIT-DOSE CUP PO PRN (12:20)
[2020-06-03] MEDS ORDERED: MAGNESIUM HYDROX 2400MG/30ML ORAL SUSPENSION 30 ML CUP PO PRN (12:20)
[2020-06-03] MEDS ORDERED: LACTATED RINGERS SOLUTION 1,000 ML IV SCH (12:30)
[2020-06-03] MEDS ORDERED: oxyCODONE HCL 5 MG TABLET PO PRN (13:00)
[2020-06-03] MEDS ORDERED: ALPRAZolam 1 MG TABLET PO PRN (14:00)
[2020-06-03] MEDS: oxyCODONE HCL 5 MG TABLET PO PRN ×2 (16:13→20:07)
[2020-06-03] MEDS: CEFAZOLIN 2 GM/D5W 2 GM/50 ML ML IVPB SCH (18:06)
[2020-06-03] MEDS: AMITRIPTYLINE HCL 25 MG TABLET PO SCH (22:03)
[2020-06-03] MEDS: SENNOSIDES/DOCUSATE COMBO (SENNA PLUS) TABLET (UD) PO SCH (22:03)
[2020-06-03] MEDS: GABAPENTIN 400 MG CAPSULE PO SCH (22:03)
[2020-06-03] MEDS: CARVEDILOL 6.25 MG TABLET (FP) PO SCH (22:03)
[2020-06-03] MEDS: RANOLAZINE E.R. 500 MG TABLET (FP) PO SCH (22:04)
[2020-06-04] MEDS: CEFAZOLIN 2 GM/D5W 2 GM/50 ML ML IVPB SCH (01:43)
[2020-06-04] MEDS: oxyCODONE HCL 5 MG TABLET PO PRN ×3 (01:43→09:28)
[2020-06-04] MEDS: GABAPENTIN 400 MG CAPSULE PO SCH (06:30)
[2020-06-04] MEDS ORDERED: ASPIRIN 325 MG TABLET PO SCH (08:00)
[2020-06-04 08:07] LABS: HEMOGLOBIN 9.8 GM/dl (10.7-15.3); MCH 27.2 pg (25.7-33.7); MCHC 32.5 g/dl (32.0-36.0); MEAN CELL VOLUME 83.6 fl (80-96); MEAN PLT VOLUME 8.6 fl (7.5-11.1); PLATELET COUNT 224 K/MM3 (134-434); RBC 3.59 M/mm3 (3.60-5.2); RDW 17.1 % (11.6-15.6); WHITE BLOOD COUNT 9.2 K/mm3 (4.0-10.8)
[2020-06-04] MEDS: RANOLAZINE E.R. 500 MG TABLET (FP) PO SCH (09:23)
[2020-06-04] MEDS: SENNOSIDES/DOCUSATE COMBO (SENNA PLUS) TABLET (UD) PO SCH (09:24)
[2020-06-04] MEDS: AMITRIPTYLINE HCL 25 MG TABLET PO SCH (09:24)
[2020-06-04] MEDS: CARVEDILOL 6.25 MG TABLET (FP) PO SCH (09:25)
[2020-06-04] MEDS ORDERED: PARoxetine HCL 20 MG TABLET PO SCH (10:00)
[2020-06-04] MEDS ORDERED: FUROSEMIDE 20 MG TABLET (FP) PO SCH (10:00)
[2020-06-04] MEDS ORDERED: PANTOPRAZOLE 40 MG TABLET PO SCH (10:00)
[2020-06-04] MEDS ORDERED: QUINAPRIL HCL 20 MG TABLET PO SCH (10:00)
[2020-06-04] MEDS ORDERED: PATIENT'S OWN MEDICATION (NON-FORMULARY) (Omeprazole [Omeprazole] 20 MG Tablet.Dr) PO SCH (10:00)
[2020-06-04] MEDS ORDERED: ROSUVASTATIN CA 10 MG TABLET (FP) PO SCH (10:00)
[2020-06-04] MEDS ORDERED: MULTIVITAMINS (DAILY MVI) TABLET (FP) PO SCH (10:00)
[2020-06-04 10:39] VITALS: BP 120/72; PULSE 82; TEMP 98.2
== END 2020-06-04 14:56 | disposition home health service (06) | DRG 470 ==
LOC: FM/S 07:21
PROVIDERS: ADMIT Orthopaedic Surgery; ATTEND Orthopaedic Surgery
PROC: 8E0Y0CZ Robotic Assisted Procedure of Lower Extremity, Open Approach (ICD-10-PCS; 2020-06-03)
PROC: 0SRC0J9 Replacement of Right Knee Joint with Synthetic Substitute, Cemented, Open Approach (ICD-10-PCS; principal; 2020-06-03 10:47)
DX: M17.11 Unilateral primary osteoarthritis, right knee (principal); I10 Essential (primary) hypertension; K21.9 Gastro-esophageal reflux disease without esophagitis
CPT/HCPCS: 36415; 73560-TC-RT-FY; 85027; 94760; 97010-GP; 97116-GP; 97162-GP

== ENCOUNTER 2020-06-24 17:42 | Emergency (ER) | payer OTHER ==
[2020-06-24 17:55] VITALS: BMI 32.3
[2020-06-24] MEDS ORDERED: KETOROLAC TROMETHAMINE 15 MG/ML VIAL IVPUSH ONE (18:52)
[2020-06-24] MEDS ORDERED: KETOROLAC TROMETHAMINE 15 MG/ML VIAL ONE (19:28)
[2020-06-24 19:36] LABS: BASO % 0.4 % (0-2.0); EOS % 5.8 % (0-4.5); HEMATOCRIT 31.3 % (32.4-45.2); HEMOGLOBIN 10.1 GM/dL (10.7-15.3); LYMPH % 32.1 % (8-40); MCHC 32.2 g/dl (32.0-36.0); MEAN CELL VOLUME 83.7 fl (80-96); MEAN PLT VOLUME 8.1 fl (7.5-11.1); MONO % 7.5 % (3.8-10.2); NEUT % 54.2 % (42.8-82.8); PLATELET COUNT 361 K/MM3 (134-434); RBC 3.74 M/mm3 (3.60-5.2); RDW 18.8 % (11.6-15.6); WHITE BLOOD COUNT 4.6 K/mm3 (4.0-10.0)
[2020-06-24 19:53] LABS: ALBUMIN 3.4 g/dl (3.4-5.0)
[2020-06-24 19:54] LABS: BLOOD UREA NITROGEN 15.2 mg/dL (7-18)
[2020-06-24 19:57] LABS: CREATININE 0.8 mg/dL (0.55-1.3)
[2020-06-24 19:58] LABS: BILIRUBIN,TOTAL 0.3 mg/dL (0.2-1); TOT PROT 6.4 g/dl (6.4-8.2)
[2020-06-24 21:02] VITALS: BP 140/72; PULSE 70; TEMP 98.4
== END 2020-06-24 21:02 | disposition home or self-care (01) ==
LOC: JER 17:42
PROC: 3E0333Z Introduction of Anti-inflammatory into Peripheral Vein, Percutaneous Approach (ICD-10-PCS; principal; 2020-06-24)
DX: R22.41 Localized swelling, mass and lump, right lower limb (principal); M25.561 Pain in right knee
CPT/HCPCS: 36415; 73562-TC-RT-FY; 80053; 85025; 87040; 93971-TC; 99285-25